=== PATIENT | female | born 1965 | race Caucasian/White ===

== ENCOUNTER → 2017-04-22 | Outpatient (CLI) | payer BC ==
--- NOTE | 2017-04-24 07:02 | MM ---
Reason for exam: screening (asymptomatic). Last mammogram was performed 1 year ago. History: Patient is postmenopausal. Family history of breast cancer in 2 maternal aunts. Benign right breast aspiration of the right breast, June 26, 2012. Mammotome Biopsy Removal of both breasts. Taking estrogen for 2 years beginning at age 47. Physical Findings: A clinical breast exam by your physician is recommended on an annual basis and results should be correlated with mammographic findings. MG Screening Mammo w CAD Bilateral CC and MLO view(s) were taken. Prior study comparison: April 19, 2016, bilateral MG diagnostic mammo w CAD ANGEL. April 13, 2015, bilateral MG diagnostic mammo w CAD ANGEL. May 10, 2014, bilateral US breast BILAT. April 08, 2013, CAD bilateral diagnostic mammogram. The breast tissue is heterogeneously dense. This may lower the sensitivity of mammography. Extensive regional calcifications redemonstrated central and lateral right breast with 4 biopsy clips. No significant changes when compared with prior studies. ASSESSMENT: Benign, BI-RAD 2 RECOMMENDATION: Routine screening mammogram of both breasts in 1 year.
== END | disposition home or self-care (01) ==
LOC: RADMAMWWP 12:56
PROVIDERS: ATTEND Surgery
DX: Z12.31 Encounter for screening mammogram for malignant neoplasm of breast (principal)

== ENCOUNTER → 2018-05-02 | Outpatient (CLI) | payer BC ==
--- NOTE | 2018-05-05 12:23 | MM ---
Reason for exam: screening (asymptomatic). Last mammogram was performed 1 year ago. History: Patient is postmenopausal. Family history of breast cancer in 2 maternal aunts. Benign right breast aspiration of the right breast, June 26, 2012. Mammotome Biopsy Removal of both breasts. Took estrogen for 3 years beginning at age 47. Physical Findings: A clinical breast exam by your physician is recommended on an annual basis and results should be correlated with mammographic findings. MG 3D Screening Mammo W/Cad Bilateral CC and MLO view(s) were taken. Prior study comparison: April 22, 2017, bilateral MG screening mammo w CAD. April 19, 2016, bilateral MG diagnostic mammo w CAD ANGEL. The breast tissue is heterogeneously dense. This may lower the sensitivity of mammography. Finding: There are stable, fine, regional calcifications in the right breast adjacent to prior biopsy sites. Previous mammotome biopsy in the right breast x 4. No significant changes in finding since April 22, 2017 and April 19, 2016. ASSESSMENT: Benign, BI-RAD 2 RECOMMENDATION: Routine screening mammogram of both breasts in 1 year.
== END | disposition home or self-care (01) ==
LOC: RADMAMWWP 10:14
PROVIDERS: ATTEND Surgery
DX: Z12.31 Encounter for screening mammogram for malignant neoplasm of breast (principal)
CPT/HCPCS: 77063; 77067

== ENCOUNTER → 2018-05-16 | Outpatient (CLI) | payer BC ==
[2018-05-16 11:25] VITALS: BP 108/73; PULSE 65; TEMP 98.6; BMI 33.5
--- NOTE | 2018-05-16 11:36 | P.GSHP ---
History of Present Illness H&P Date: 05/16/18 The patient is a 51 year old white female patient without concerns related to her breast. The patient denies any pain masses nipple discharge or skin changes related to her breast. The patient is status post hysterectomy with bilateral oophorectomy approximately 5 years ago. This was done for a mass on her uterus. Patient had a bilateral mammogram performed 05/02/2018 which was felt to be stable and repeat bilateral mammogram in 1 year's time was recommended. Family History: 1. mother: diagnosed of colon cancer at 62 and 2. maternal aunts: 2 with breast cancer, post menopausal Past surgical history: 1. Hysterectomy with bilateral oophorectomy 2. Bilateral open breast biopsies 3. Mammotome bilateral breast Past Medical History: none Social history: smoke: none alcohol: rare drugsL none - Constitutional Comment: hot flashes Constitutional: Denies chills, Denies fever - EENT Eyes: denies bulging eye, denies pain Ears: bilateral: decreased hearing, deny: tinnitus Ears, nose, mouth and throat: Denies headache, Denies sore throat - Breasts Breasts: bilateral: as per HPI - Cardiovascular Cardiovascular: Denies chest pain, Denies shortness of breath - Respiratory Respiratory: Denies cough, Denies 7 - Gastrointestinal Gastrointestinal: Denies abdominal pain, Denies diarrhea, Denies nausea, Denies vomiting - Genitourinary (Female) Genitourinary: Denies dysuria, Denies hematuria - Menstruation Menstruation: Reports post hysterectomy - Musculoskeletal Musculoskeletal: Denies myalgias - Integumentary Integumentary: Denies pruritus, Denies rash - Neurological Neurological: Denies numbness, Denies weakness - Psychiatric Psychiatric: Denies anxiety, Denies depression - Endocrine Endocrine: Denies fatigue, Denies weight change - Hematologic/Lymphatic Comment: none - Allergic/Immunologic Allergic/Immunologic: Reports seasonal allergies Surgical - Exam - General well developed, well nourished, no distress - Eyes normal ocular movement, no icteric - ENT no hearing loss, no congestion - Neck no masses, trachea midline - Respiratory normal respiratory effort, clear to auscultation - Cardiovascular Rhythm: regular Heart Sounds: normal: S1, S2 - Abdomen Abdomen: soft, non tender, no guarding, no rigid, no rebound - Neurologic no disoriented, no combative - Musculoskeletal normal gait, normal posture - Psychiatric oriented to time, oriented to person, oriented to place, speech is normal, memory intact Breast examination: Right breast: Multi-positional exam no dominant masses or nodules of concern Right axilla: No adenopathy of concern Left breast: Well-healed scar from prior biopsy multiple positional exam no dominant masses or nodules of concern Left axilla: No adenopathy of concern Results Mammograms 05-02-2018 report reviewed Assessment and Plan Assessment: Impression: 1. Fibrocystic breast changes 2. Decreased hearing Plan: 1. Repeat bilateral mammogram and physician exam in 1 year CC: Amirah Roy
== END ==
LOC: WWCWWP 10:51
PROVIDERS: ATTEND Surgery
DX: Z53.9 Procedure and treatment not carried out, unspecified reason (principal)

== ENCOUNTER → 2019-05-13 | Outpatient (CLI) | payer BC ==
--- NOTE | 2019-05-14 12:50 | MM ---
Reason for exam: screening (asymptomatic). Last mammogram was performed 1 year ago. History: Patient is postmenopausal. Family history of breast cancer in 2 maternal aunts. Benign right breast aspiration of the right breast, June 26, 2012. Mammotome Biopsy Removal of both breasts. Took estrogen for 3 years beginning at age 47. Physical Findings: A clinical breast exam by your physician is recommended on an annual basis and results should be correlated with mammographic findings. MG 3D Screening Mammo W/Cad Bilateral CC and MLO view(s) were taken. Prior study comparison: May 02, 2018, bilateral MG 3d screening mammo w/cad. April 22, 2017, bilateral MG screening mammo w CAD. The breast tissue is heterogeneously dense. This may lower the sensitivity of mammography. Left superior asymmetry, additional views recommended. Right biopsy markers noted with marked surrounding distortion. Ultrasound recommended as a precautionary measure. ASSESSMENT: Incomplete: need additional imaging evaluation, BI-RAD 0 RECOMMENDATION: Special view mammogram of the left breast. Ultrasound of the right breast. (upper outer quadrant) [facility] will attempt to contact patient to return for supplemental views and ultrasound.
== END | disposition home or self-care (01) ==
LOC: RADMAMWWP 09:23
PROVIDERS: ATTEND Surgery
DX: Z12.31 Encounter for screening mammogram for malignant neoplasm of breast (principal)
CPT/HCPCS: 77063; 77067

== ENCOUNTER → 2019-05-21 | Outpatient (CLI) | payer BC | END | disposition home or self-care (01) | LOC: RADMAMWWP 13:05 | PROVIDERS: ATTEND Surgery | DX: Z53.9 Procedure and treatment not carried out, unspecified reason (principal) ==

== ENCOUNTER → 2019-05-21 | Outpatient (CLI) | payer BC ==
--- NOTE | 2019-05-21 10:51 | MM ---
Reason for exam: additional evaluation requested from abnormal screening. Last mammogram was performed less than 1 month ago. History: Patient is postmenopausal. Family history of breast cancer in 2 maternal aunts. Benign right breast aspiration of the right breast, June 26, 2012. Mammotome Biopsy Removal of both breasts. Took estrogen for 3 years beginning at age 47. Physical Findings: Nurse did not find any significant physical abnormalities on exam. MG 3D Work Up W/Cad LT LM and spot compression MLO view(s) were taken of the left breast. Prior study comparison: May 13, 2019, bilateral MG 3d screening mammo w/cad. May 02, 2018, bilateral MG 3d screening mammo w/cad. The breast tissue is heterogeneously dense. This may lower the sensitivity of mammography. Asymmetric breast tissue left upper breast, stable. No definite lesion. These results were verbally communicated with the patient and result sheet given to the patient on 05/21/19. ASSESSMENT: Benign, BI-RAD 2 RECOMMENDATION: Return to routine screening mammogram schedule for both breasts.
--- NOTE | 2019-05-21 10:53 | USB ---
Reason for exam: additional evaluation requested from abnormal screening. History: Patient is postmenopausal. Family history of breast cancer in 2 maternal aunts. Benign right breast aspiration of the right breast, June 26, 2012. Mammotome Biopsy Removal of both breasts. Took estrogen for 3 years beginning at age 47. US Breast Workup Limited RT Right limited breast ultrasound including focal area of concern, retroareolar and axilla demonstrates a 0.3 x 0.3 x 0.2cm oval, cystic lesion at 12 o'clock focal dense fibroglandular tissue and a 0.9 x 0.6 x 0.7cm oval, mixed lesion at 10 o'clock, questionable debris filled cyst. These results were verbally communicated with the patient and result sheet given to the patient on 05/21/19. ASSESSMENT: Probably benign, BI-RAD 3 RECOMMENDATION: Follow-up diagnostic mammogram and ultrasound of the right breast in 6 months.
[2019-05-21 14:32] VITALS: BP 122/77; PULSE 69; RESP 18; TEMP 98.6; BMI 34.7
--- NOTE | 2019-05-21 14:39 | P.GSHP ---
History of Present Illness H&P Date: 05/21/19 The patient is a 53 year old white female patient without concerns related to her breast. The patient denies any pain masses nipple discharge or skin changes related to her breast. The patient is status post hysterectomy with bilateral oophorectomy approximately 5 years ago. This was done for a mass on her uterus. Patient had a bilateral mammogram performed 05-13-19, it was recommended she undergo a left breast mammogram and right breast ultrasound. On the right ultrasound patient was noted to have cystic changes in the right breast for which repeat right breast mammogram and ultrasound was recommended and 6 months. On the left breast mammogram no definite lesions of concern were noted and repeat mammogram in 1 year was recommended. Family History: 1. mother: diagnosed of colon cancer at 62 and 2. maternal aunts: 2 with breast cancer, post menopausal Past surgical history: 1. Hysterectomy with bilateral oophorectomy 2. Bilateral open breast biopsies 3. Mammotome bilateral breast Past Medical History: anxiety/depression Social history: smoke: none alcohol: rare drugs: none - Constitutional Comment: hot flashes resolvedsince taking Celexa Constitutional: Denies chills, Denies fever - EENT Eyes: denies bulging eye, denies pain Ears: bilateral: decreased hearing, deny: tinnitus Ears, nose, mouth and throat: Denies headache, Denies sore throat - Breasts Breasts: bilateral: as per HPI - Cardiovascular Cardiovascular: Denies chest pain, Denies shortness of breath - Respiratory Respiratory: Denies cough, Denies SOB - Gastrointestinal Gastrointestinal: Denies abdominal pain, Denies diarrhea, Denies nausea, Denies vomiting - Genitourinary (Female) Genitourinary: Denies dysuria, Denies hematuria - Menstruation Menstruation: Reports post hysterectomy - Musculoskeletal Musculoskeletal: Denies myalgias - Integumentary Integumentary: Denies pruritus, Denies rash - Neurological Neurological: Denies numbness, Denies weakness - Psychiatric Psychiatric: anxiety/depression - Endocrine Endocrine: Denies fatigue, Denies weight change - Hematologic/Lymphatic Comment: none - Allergic/Immunologic Allergic/Immunologic: Reports seasonal allergies - Constitutional Constitutional: Denies chills, Denies fever - EENT Eyes: denies blurred vision, denies pain Ears: bilateral: decreased hearing, deny: tinnitus Ears, nose, mouth and throat: Denies headache, Denies sore throat - Breasts Breasts: bilateral: as per HPI - Cardiovascular Cardiovascular: Denies chest pain, Denies shortness of breath - Respiratory Respiratory: Denies cough, Denies 7 - Gastrointestinal Gastrointestinal: Denies abdominal pain, Denies diarrhea, Denies nausea, Denies vomiting - Genitourinary (Female) Genitourinary: Denies dysuria, Denies hematuria - Menstruation Comment: took ovaries Menstruation: Reports post hysterectomy - Musculoskeletal Comment: arthritis - Integumentary Integumentary: Denies pruritus, Denies rash - Neurological Neurological: Denies numbness, Denies weakness - Psychiatric Psychiatric: Reports anxiety, Reports depression - Endocrine Endocrine: Denies fatigue, Denies weight change - Hematologic/Lymphatic Comment: none - Allergic/Immunologic Allergic/Immunologic: Reports seasonal allergies Past Medical History History of Any Multi-Drug Resistant Organisms: None Reported Smoking Status: Never smoker Medications and Allergies Home Medications Medication Instructions Recorded Confirmed Type Fexofenadine HCl [Roula Allergy] 60 mg PO DAILY 05/16/18 05/16/18 History Fluticasone Nasal Gheens [Flonase 1 spray EA NOSTRIL DAILY 05/16/18 05/16/18 History Nasal Gheens] Allergies Allergy/AdvReac Type Severity Reaction Status Date / Time No Known Allergies Allergy Unverified 05/16/18 11:20 Surgical - Exam BMI - General BMI 34.7 obese - Eyes normal ocular movement - ENT no hearing loss, no congestion - Neck no masses, trachea midline - Respiratory normal respiratory effort, clear to auscultation - Cardiovascular Rhythm: regular Heart Sounds: normal: S1, S2 - Abdomen Abdomen: soft, non tender, no guarding, no rigid, no rebound - Integumentary normal turgor - Neurologic no disoriented, no combative - Musculoskeletal normal gait, normal posture - Psychiatric oriented to time, oriented to person, oriented to place, speech is normal, memory intact breast exam: Right breast: Multi-positional exam fibrocystic changes, increased nodularity at 12 o'clock position no discrete mass Right axilla: No adenopathy of concern Left breast: Multi-positional exam fibrocystic changes, increased fullness upper-outer quadrant region which is questionably consistent with a cyst Left axilla: No adenopathy of concern Results Mammogram and ultrasound results reviewed Assessment and Plan Assessment: Impression: 1. Fibrocystic breast changes 2. Asymmetry of right breast larger than the left breast 3. Fullness left breast upper outer quadrant attempted aspiration versus FNA 4. Fullness 12 o'clock position right breast we'll reevaluate when patient comes for cyst aspiration of the left breast 5. Maternal aunts with breast cancer 6. Patient is perimenopausal as per night sweats she has had a hysterectomy is not taking hormones 7. Anxiety/depression Plan: 1. Repeat right breast mammogram and ultrasound in 6 months 2. We will attempt to do aspiration of questionable cystic lesion in the left breast upper quadrant depending on ability to do this would consider aspiration of 12 o'clock position right breast 3. Medical management of medical conditions CC: Sri Roy
== END ==
LOC: WWCWWP 08:55
PROVIDERS: ATTEND Surgery
DX: R92.8 Other abnormal and inconclusive findings on diagnostic imaging of breast (principal)
CPT/HCPCS: 77061; 77065

== ENCOUNTER → 2019-06-12 | Outpatient (CLI) | payer BC ==
--- NOTE | 2019-06-12 08:21 | P.PCN ---
Date of Procedure: 06/12/19 Preoperative Diagnosis: Fullness left breast upper outer quadrant area Postoperative Diagnosis: Fibrocystic breast changes Procedure(s) Performed: Attempted aspiration upper outer quadrant area fine-needle aspiration cytology obtained Surgeon: Carey Osman Pathology: other (Fine-needle aspiration cytology) Condition: stable Disposition: same day Indications for Procedure: fullness upper outer quadrant left breast Operative Findings: fibrocystic changes Description of Procedure: Palpation of the upper outer quadrant area of the left breast revealed some fullness which was consistent with questionably cystic changes. An attempt at a cyst aspiration was performed however no cystic fluid was obtained. Fine-needle aspiration of the area was obtained. The breast was prepped using alcohol. A 22-gauge needle on a 10 mL syringe was inserted into the area of concern. Suction was applied to the syringe and the syringe was passed several times into the area. Tissue was obtained. The tissue was prepared for pathology and sent to pathology. The right breast was also reevaluated the area of change at the 12 o'clock position was consistent with that which had been felt in the left breast upper outer quadrant area and was felt to be most likely teleservices representative of fibrocystic change as well. Therefore no FNA was performed on the right side. This will continue to be monitored closely. Impression: 1. Fibrocystic breast changes 2. Asymmetry of the right breast larger than the left breast 3. Tortuous left breast upper outer quadrant attempted aspiration performed no cystic fluid obtained FNA up obtained 4. Simvastatin correct position of right breast consistent with fibrocystic changes 5. Maternal aunts with breast cancer 6. Patient perimenopausal 7. Anxiety/depression Plan: 1. Repeat right breast mammogram and ultrasound in 6 months 2. Repeat physician exam in 6 months 3. Patient can call for results of FNA if there is any atypia recommended open biopsy 4. Medical management of medical conditions Cc: Sri Laughlin
[2019-06-12 08:41] VITALS: BP 115/76; PULSE 67; RESP 18; TEMP 98; BMI 34.2
--- NOTE | 2019-06-19 16:08 | P.PN ---
Progress Note - Text Progress Note Date: 06/19/19 The patient called for results of her right breast UOQ FNA which was performed on . Pathology was benign with minimally cellular specimen consisting of predominantly blood and fragments of adipose tissue, nondiagnostic. There was no atypia present in the specimen. We're therefore going to follow the patient conservatively. The fullness which had been felt in the right breast at 12 Oclock is believed to be fibrocystic disease. The plan therefore is for repeat right breast mammogram and ultrasound in 6 months from her last right breast mammogram, and ultrasound. This will be done in November 2019. Repeat physician exam at that time as well. This was discussed with the patient. The patient states she has some ecchymosis at the site of the FNA but this is resolving. She has no other complaints related to the procedure. She will follow up in 6 months or sooner if she has any questions or concerns. Dr. Agosto
== END | disposition home or self-care (01) ==
LOC: WWCWWP 07:58
PROVIDERS: ATTEND Surgery
DX: N64.9 Disorder of breast, unspecified (principal)
CPT/HCPCS: 88173

== ENCOUNTER → 2019-12-25 | Outpatient (CLI) | payer BC ==
--- NOTE | 2019-12-25 10:43 | MM ---
Reason for exam: follow-up at short interval from prior study. Last mammogram was performed 7 months ago. History: Patient is postmenopausal. Family history of breast cancer in 2 maternal aunts. Benign right breast aspiration of the right breast, June 26, 2012. Mammotome Biopsy Removal of both breasts. Took estrogen for 3 years beginning at age 47. Physical Findings: Nurse did not find any significant physical abnormalities on exam. MG 3D Diag Mammo W/Cad RT CC and MLO view(s) were taken of the right breast. Prior study comparison: May 21, 2019, left breast MG 3d work up w/cad LT. May 13, 2019, bilateral MG 3d screening mammo w/cad. The breast tissue is heterogeneously dense. This may lower the sensitivity of mammography. Right upper outer quadrant 8.3cm architectural distortion with three biopsy markers is deep to the scar from prior excisional biopsy. These results were verbally communicated with the patient and result sheet given to the patient on 12/25/19. ASSESSMENT: Incomplete: need additional imaging evaluation, BI-RAD 0 RECOMMENDATION: Ultrasound of the right breast. (follow up from prior)
--- NOTE | 2019-12-25 10:46 | USB ---
Reason for exam: additional evaluation requested from abnormal screening. History: Patient is postmenopausal. Family history of breast cancer in 2 maternal aunts. Benign right breast aspiration of the right breast, June 26, 2012. Mammotome Biopsy Removal of both breasts. Took estrogen for 3 years beginning at age 47. US Breast Limited RT Right limited breast ultrasound including focal area of concern, retroareolar and axilla demonstrates a 0.4 x 0.3 x 0.3cm oval, complex, cystic lesion at 12 o'clock (0.3 x 0.2 x 0.3cm), a 0.5 x 0.7 x 0.2cm oval, cystic lesion at 9 o'clock new but cystic and a 0.8 x 0.7 x 0.6cm oval, cystic lesion at 10 o'clock, increased cystic component (0.9 s 0.7 x 0.6cm). These results were verbally communicated with the patient and result sheet given to the patient on 12/25/19. ASSESSMENT: Benign, BI-RAD 2 RECOMMENDATION: Return to routine screening mammogram schedule for both breasts.
== END | disposition home or self-care (01) ==
LOC: RADMAMWWP 07:38
PROVIDERS: ATTEND Surgery
DX: R92.8 Other abnormal and inconclusive findings on diagnostic imaging of breast (principal)
CPT/HCPCS: 77061; 77065

== ENCOUNTER → 2020-05-16 | Outpatient (CLI) | payer BC ==
--- NOTE | 2020-05-17 09:04 | MM ---
Reason for exam: screening (asymptomatic). Last mammogram was performed 5 months ago. History: Patient is postmenopausal. Family history of breast cancer in 2 maternal aunts. Benign right breast aspiration of the right breast, June 26, 2012. Mammotome Biopsy Removal of both breasts. Took estrogen for 3 years beginning at age 47. Physical Findings: A clinical breast exam by your physician is recommended on an annual basis and results should be correlated with mammographic findings. MG 3D Screening Mammo W/Cad Bilateral CC and MLO view(s) were taken. Prior study comparison: December 25, 2019, right breast MG 3d diag mammo w/cad RT. May 21, 2019, left breast MG 3d work up w/cad LT. The breast tissue is heterogeneously dense. This may lower the sensitivity of mammography. Stable calcifications bilaterally. Previous mammotome biopsy in the right breast. There is chronic nodularity bilaterally. There is no dominant lesion. No significant changes when compared with prior studies. ASSESSMENT: Benign, BI-RAD 2 RECOMMENDATION: Routine screening mammogram of both breasts in 1 year.
== END | disposition home or self-care (01) ==
LOC: RADMAMWWP 07:31
PROVIDERS: ATTEND Surgery
DX: Z12.31 Encounter for screening mammogram for malignant neoplasm of breast (principal)
CPT/HCPCS: 77063; 77067

== ENCOUNTER → 2020-06-30 | Outpatient (CLI) | payer BC ==
[2020-06-30 16:32] VITALS: BP 144/88; PULSE 74; RESP 18; TEMP 98.4
--- NOTE | 2020-06-30 16:35 | P.PN ---
Subjective Progress Note Date: 06/30/20 Principal diagnosis: Fibrocystic breast changes The patient is a 54 year old white female patient without concerns related to her breast. The patient denies any pain, masses nipple discharge or skin changes related to her breast. The patient is status post hysterectomy with bi lateral oophorectomy approximately 5 years ago. This was done for a mass on her uterus. Patient had a bilateral mammogram performed 05-16-20, it was read as benign BIRAD 2. Family History: 1. mother: diagnosed of colon cancer at 62 and 2. maternal aunts: 2 with breast cancer, post menopausal 3. brother: bile duct cancer Past surgical history: 1. Hysterectomy with bilateral oophorectomy 2. Bilateral open breast biopsies 3. Mammotome bilateral breast Past Medical History: anxiety/depression Social history: smoke: none alcohol: rare drugs: none - Constitutional Comment: hot flashes resolved since taking Celexa Constitutional: Denies chills, Denies fever - EENT Eyes: denies bulging eye, denies pain Ears: bilateral: decreased hearing, deny: tinnitus Ears, nose, mouth and throat: Denies headache, Denies sore throat - Breasts Breasts: bilateral: as per HPI - Cardiovascular Cardiovascular: Denies chest pain, Denies shortness of breath - Respiratory Respiratory: Denies cough, Denies SOB - Gastrointestinal Gastrointestinal: Denies abdominal pain, Denies diarrhea, Denies nausea, Denies vomiting - Genitourinary (Female) Genitourinary: Denies dysuria, Denies hematuria - Menstruation Menstruation: Reports post hysterectomy - Musculoskeletal Musculoskeletal: Denies myalgias - Integumentary Integumentary: Denies pruritus, Denies rash - Neurological Neurological: Denies numbness, Denies weakness - Psychiatric Psychiatric: anxiety/depression - Endocrine Endocrine: Denies fatigue, Denies weight change - Hematologic/Lymphatic Comment: none - Allergic/Immunologic Allergic/Immunologic: Reports seasonal allergies - Constitutional Constitutional: Denies chills, Denies fever Objective - Exam BMI 34.9 - Constitutional General appearance: Present: obese - EENT Eyes: Present: EOMI ENT: Present: hearing grossly normal - Neck Neck: Present: normal ROM - Respiratory Respiratory: bilateral: CTA - Cardiovascular Rhythm: regular Heart sounds: normal: S1, S2 - Gastrointestinal General gastrointestinal: Present: normal bowel sounds, soft - Integumentary Integumentary: Present: normal turgor - Musculoskeletal Musculoskeletal: Present: gait normal - Psychiatric Psychiatric: Present: A&O x's 3, appropriate affect, intact judgment & insight - Additional findings Additional findings: breast exam: Bra: 38DD Inspection: Right breast larger than left breast, bilateral grade 3 ptosis Palpation: Right breast: Multi-positional exam no dominant masses or nodules of concern, fibrocystic changes Right axilla: No adenopathy of concern Left breast: Multi-positional exam no dominant masses or nodules of concern Left axilla: No adenopathy of concern Assessment and Plan Assessment: Impression: 1. Fibrocystic breast changes 2. Asymmetry of the breast Plan: 1. Bilateral mammogram in June 03 with physician exam at that time 2. We have talked about a procedure for the asymmetry of the breast. At this time the patient wishes to wait CC: DR. Agosto encounter 15 minutes, > 50% of time in planning and counselling
== END | disposition home or self-care (01) ==
LOC: WWCWWP 15:43
PROVIDERS: ATTEND Surgery
DX: Z53.9 Procedure and treatment not carried out, unspecified reason (principal)

== ENCOUNTER 2020-10-12 09:32 | Day surgery (SDC) | payer BC ==
[2020-10-06 11:22] VITALS: BMI 34.4
[~2020-10-12 09:32] MED LIST: LACTATED RINGERS 1,000 ML IV SCH
[2020-10-12 10:02] VITALS: TEMP 98.9
[2020-10-12] MEDS ORDERED: LIDOCAINE 1% (10MG/ML) FOR IV START INTRADERMA ONE (10:04)
[2020-10-12] MEDS ORDERED: MIDAZOLAM 2 MG/2 ML VIAL ONE (10:22)
[2020-10-12] MEDS ORDERED: fentaNYL (PF) 50 MCG/ML 2 ML AMP ONE (10:22)
[2020-10-12] MEDS ORDERED: PROPOFOL 10 MG/ML 20 ML VIAL IV ONE (10:22)
--- NOTE | 2020-10-12 10:50 | P.PCN ---
Date of Procedure: 10/12/20 Procedure(s) Performed: BRIEF HISTORY: Patient is a 54-year-old pleasant white female scheduled for an elective colonoscopy as a part of screening for colorectal neoplasia and family history of colon cancer diagnosed in her mother at age 60. PROCEDURE PERFORMED: Colonoscopy. PREOPERATIVE DIAGNOSIS: Screening for colon cancer/family history of colon cancer. IV sedation per Anesthesia. PROCEDURE: After informed consent was obtained, the patient, was brought into the endoscopy unit. IV sedation was administered by Anesthesia under continuous monitoring. Digital rectal examination was normal. Initially the Olympus CF-160 flexible video colonoscope was then inserted in the rectum, gradually advanced into the cecum without any difficulty. Careful examination was performed as the scope was gradually being withdrawn. Ileocecal valve and the appendiceal orifice were visualized and appeared normal. Prep was excellent. Mucosa of the cecum, ascending colon, transverse colon, descending colon, sigmoid colon, and rectum appeared normal. Retroflexion was performed in the rectum and no lesions were seen. The patient tolerated the procedure well. IMPRESSION: Normal-appearing colon from rectum to cecum with no evidence of colorectal neoplasia. RECOMMENDATIONS: Findings of this examination were discussed with the patient as well as her family. She was advised to have a repeat screening colonoscopy in 5 years because of the family history of colon cancer..
[2020-10-12 11:06] VITALS: BP 117/75; PULSE 65; RESP 20
== END 2020-10-12 11:43 | disposition home or self-care (01) ==
LOC: ORWHC2ENDO 09:32
PROVIDERS: ATTEND Internal Medicine Gastroenterology
DX: Z12.11 Encounter for screening for malignant neoplasm of colon (principal); F41.9 Anxiety disorder, unspecified; F32.9 Major depressive disorder, single episode, unspecified; Z80.0 Family history of malignant neoplasm of digestive organs; Z90.710 Acquired absence of both cervix and uterus; Z90.722 Acquired absence of ovaries, bilateral; Z98.890 Other specified postprocedural states; Z79.899 Other long term (current) drug therapy
CPT/HCPCS: J2250; J3010; J2704; G0105

== ENCOUNTER → 2021-05-18 | Outpatient (CLI) | payer BC ==
--- NOTE | 2021-05-22 14:31 | MM ---
Reason for exam: screening (asymptomatic). Last mammogram was performed 1 year ago. History: Patient is postmenopausal. Family history of breast cancer in 2 maternal aunts. Benign right breast aspiration of the right breast, June 26, 2012. Mammotome Biopsy Removal of both breasts. Took estrogen for 3 years beginning at age 47. Physical Findings: A clinical breast exam by your physician is recommended on an annual basis and results should be correlated with mammographic findings. MG 3D Screening Mammo W/Cad Bilateral CC and MLO view(s) were taken. Prior study comparison: May 16, 2020, bilateral MG 3d screening mammo w/cad. December 25, 2019, right breast MG 3d diag mammo w/cad RT. Finding: There are diffuse/scattered fine calcifications in the right breast. Previous mammotome biopsy in the right breast x 4. No significant changes in finding since May 16, 2020 and December 25, 2019. ASSESSMENT: Benign, BI-RAD 2 RECOMMENDATION: Routine screening mammogram of both breasts in 1 year.
== END | disposition home or self-care (01) ==
LOC: RADMAMWWP 10:21
PROVIDERS: ATTEND Surgery
DX: Z12.31 Encounter for screening mammogram for malignant neoplasm of breast (principal); Z78.0 Asymptomatic menopausal state; Z80.3 Family history of malignant neoplasm of breast; Z79.818 Long term (current) use of other agents affecting estrogen receptors and estrogen levels
CPT/HCPCS: 77063; 77067

== ENCOUNTER → 2021-05-25 | Outpatient (CLI) | payer BC ==
[2021-05-25 10:19] VITALS: BP 135/83; PULSE 61; RESP 18; TEMP 98.1
--- NOTE | 2021-05-25 10:24 | P.PN ---
Subjective Progress Note Date: 05/25/21 Principal diagnosis: fibrocystic breast disease Fibrocystic breast changes The patient is a 55 year old white female patient without concerns related to her breast. The patient denies any pain, masses nipple discharge or skin changes related to her breast. The patient is status post hysterectomy with bilateral oophorectomy approximately 5 years ago. This was done for a mass on her uterus. Patient had a bilateral mammogram performed 05-18-21, it was read as benign BIRAD 2. Family History: 1. mother: diagnosed of colon cancer at 62 and 2. maternal aunts: 2 with breast cancer, post menopausal 3. brother: bile duct cancer Past surgical history: 1. Hysterectomy with bilateral oophorectomy 2. Bilateral open breast biopsies 3. Mammotome bilateral breast Past Medical History: anxiety/depression Social history: smoke: none alcohol: rare drugs: none - Constitutional Comment: hot flashes resolved since taking Celexa Constitutional: Denies chills, Denies fever - EENT Eyes: denies bulging eye, denies pain Ears: bilateral: decreased hearing, deny: tinnitus Ears, nose, mouth and throat: Denies headache, Denies sore throat - Breasts Breasts: bilateral: as per HPI - Cardiovascular Cardiovascular: Denies chest pain, Denies shortness of breath - Respiratory Respiratory: Denies cough, Denies SOB - Gastrointestinal Gastrointestinal: Denies abdominal pain, Denies diarrhea, Denies nausea, Denies vomiting - Genitourinary (Female) Genitourinary: Denies dysuria, Denies hematuria - Menstruation Menstruation: Reports post hysterectomy - Musculoskeletal Musculoskeletal: Denies myalgias - Integumentary Integumentary: Denies pruritus, Denies rash - Neurological Neurological: Denies numbness, Denies weakness - Psychiatric Psychiatric: anxiety/depression - Endocrine Endocrine: Denies fatigue, Denies weight change - Hematologic/Lymphatic Comment: none - Allergic/Immunologic Allergic/Immunologic: Reports seasonal allergies - Constitutional Constitutional: Denies chills, Denies fever Objective - Exam BMI 36.9 - Constitutional General appearance: Present: cooperative - EENT Eyes: Present: EOMI ENT: Present: hearing grossly normal - Neck Neck: Present: normal ROM - Respiratory Respiratory: bilateral: CTA - Cardiovascular Rhythm: regular Heart sounds: normal: S1, S2 - Integumentary Integumentary: Present: normal turgor - Musculoskeletal Musculoskeletal: Present: gait normal - Psychiatric Psychiatric: Present: A&O x's 3, appropriate affect, intact judgment & insight - Additional findings Additional findings: Breast Exam: BRA: sports XL inspection: Right breast larger than the left breast, well-healed scars bilateral from prior biopsies; lateral grade 3 ptosis or cystic changes, no dominant masses or nodules of concern palpation: Right axilla: No adenopathy of concern Left breast: Multiple positional exam fibrocystic changes no dominant masses or nodules of concern Left axilla: No adenopathy of concern Assessment and Plan Assessment: Impression: 1. Fibrocystic breast changes 2. Asymmetry of the breast 3. No dominant masses or nodules of concern in either breast 4. Benign BIRADS 2 bilateral mammogram 8521 Plan: 1. Bilateral mammogram in 1 year with physician exam at that time 2. Patient to call if she notes any concerns sooner CC: Dr. Holden; Marga Gamble
== END ==
LOC: WWCWWP 09:40
PROVIDERS: ATTEND Surgery
DX: N60.12 Diffuse cystic mastopathy of left breast (principal); F41.9 Anxiety disorder, unspecified; F32.9 Major depressive disorder, single episode, unspecified; N64.89 Other specified disorders of breast

== ENCOUNTER → 2022-01-09 | Outpatient (CLI) | payer BC ==
[2022-01-10 00:16] LABS: Basophils # (A) 0.05 X 10*3/uL (0.00-0.10); Basophils % (A) 1.4 %; Eosinophils # (A) 0.32 X 10*3/uL (0.04-0.35); Eosinophils % (A) 9.2 %; HGB 13.2 g/dL (12.0-15.0); Immature Grans, Automated 0.3 %; Lymphocytes % (A) 34.6 %; MCH 31.1 pg (27.0-32.0); MCHC 32.2 g/dL (32.0-37.0); MCV 96.7 fL (80.0-97.0); Mean Platelet Volume 9.8 fL (9.5-12.2); Monocytes # (A) 0.37 X 10*3/uL (0.20-1.00); Monocytes % (A) 10.7 %; NRBC Per 100 WBC 0 /100 WBCS (0.0-0.0); Neutrophils # (A) 1.52 X 10*3/uL (1.80-7.70); Neutrophils % (A) 43.8 %; Platelet Count 294 X 10*3/uL (140-440); RBC 4.24 X 10*6/uL (4.10-5.20); RDW 12.5 % (11.5-14.5); WBC 3.47 X 10*3/uL (4.50-10.00)
[2022-01-10 02:47] LABS: % Iron Saturation 24.05 (12.00-45.00); African American GFR (CKD) 114.8 (60.0-200.0); Albumin 4.9 g/dL (3.8-4.9); Albumin/Globulin Ratio 2.28 (1.60-3.17); BUN/Creat Ratio 23.28 Ratio (12.00-20.00); Blood Urea Nitrogen 14.9 mg/dL (9.0-27.0); Calcium 10.3 mg/dL (8.7-10.3); Carbon Dioxide 25.1 mmol/L (20.0-27.5); Globulin 2.1 g/dL (1.6-3.3); Non-African American GFR(CKD) 99.1 (60.0-200.0); Potassium 4.1 mmol/L (3.5-5.5); Total Bilirubin 0.3 mg/dL (0.30-1.20)
[2022-01-10 04:06] LABS: Hepatitis B Surface Antigen Nonreactive (Nonreactive); Hepatitis C IgG Antibody Nonreactive (Nonreactive)
[2022-01-10 04:33] LABS: Alpha 1 Antitrypsin 83.4 mg/dL (99.0-242.0)
[2022-01-10 13:05] LABS: Protein, Total 7.1 g/dL (6.2-8.2)
== END | disposition home or self-care (01) ==
LOC: LABWHC1 11:11
PROVIDERS: ATTEND Internal Medicine Gastroenterology
DX: R74.01 Elevation of levels of liver transaminase levels (principal)
CPT/HCPCS: 36415; 80053; 82103; 82390; 82728; 83516; 83540; 83550; 84165; 85025; 86038; 86039; 86803; 87340

== ENCOUNTER → 2022-05-21 | Outpatient (CLI) | payer BC ==
--- NOTE | 2022-05-22 08:23 | MM ---
Reason for Exam: Screening (asymptomatic). Last screening mammogram was performed 12 month(s) ago. Patient History: Menarche at age 12. Left ovary removed at age 47. Right ovary removed at age 47. Hysterectomy at age 47. Postmenopausal. Estrogen for 3 years from age 47 until age 50. Bilateral Core Biopsy. 06/26/2012, Benign Cyst Aspiration on the right side. Maternal aunt had breast cancer, age 75. Maternal aunt had breast cancer, age 70. Risk Values: Vandana 5 year model risk: 1.1%. NCI Lifetime model risk: 6.7%. Prior Study Comparison: 12/25/2019 Right Diagnostic Mammogram, [facility]. 05/16/2020 Bilateral Screening Mammogram, [facility]. 05/18/2021 Bilateral Screening Mammogram, [facility]. Tissue Density: The breast tissue is heterogeneously dense. This may lower the sensitivity of mammography. Findings: Analyzed By CAD. There is no suspicious group of microcalcifications or new suspicious mass in either breast. Previously biopsied calcifications upper outer right breast remains stable. Overall Assessment: Benign, BI-RAD 2 Management: Screening Mammogram of both breasts in 1 year. A clinical breast exam by your physician is recommended on an annual basis and results should be correlated with mammographic findings. Electronically signed and approved by: Perez Hernandez M.D. Radiologis
== END | disposition home or self-care (01) ==
LOC: RADMAMWWP 09:55
PROVIDERS: ATTEND Surgery
DX: Z12.31 Encounter for screening mammogram for malignant neoplasm of breast (principal); Z80.3 Family history of malignant neoplasm of breast; Z78.0 Asymptomatic menopausal state
CPT/HCPCS: 77063; 77067

== ENCOUNTER → 2023-05-23 | Outpatient (CLI) | payer BC ==
--- NOTE | 2023-05-25 23:16 | MM ---
Reason for Exam: Screening (asymptomatic). Last screening mammogram was performed 12 month(s) ago. Patient History: Menarche at age 12. Patient has no children. Left ovary removed at age 47. Right ovary removed at age 47. Hysterectomy at age 47. Postmenopausal. Estrogen for 3 years from age 47 until age 50. Bilateral Core Biopsy. 06/26/2012, Benign Cyst Aspiration on the right side. Maternal aunt had breast cancer, age 75. Maternal aunt had breast cancer, age 70. Risk Values: Vandana 5 year model risk: 1.8%. NCI Lifetime model risk: 10.0%. Prior Study Comparison: 04/22/2017 Bilateral Screening Mammogram, [facility]. 05/02/2018 Bilateral Screening Mammogram, [facility]. 05/13/2019 Bilateral Screening Mammogram, [facility]. 05/21/2019 Left Diagnostic Mammogram, [facility]. 12/25/2019 Right Diagnostic Mammogram, [facility]. 05/16/2020 Bilateral Screening Mammogram, [facility]. 05/18/2021 Bilateral Screening Mammogram, [facility]. 05/21/2022 Bilateral MG 3D screening mammo w/cad, [facility]. Tissue Density: The breast tissue is heterogeneously dense. This may lower the sensitivity of mammography. Findings: Analyzed By CAD. Unchanged global asymmetry upper outer quadrant right breast. For microclips in the right breast from prior biopsies. Chronic nodularity on both sides. Additional areas of asymmetric density are unchanged. No significant change from prior exams. Overall Assessment: Benign, BI-RAD 2 Management: Screening Mammogram of both breasts in 1 year. . Patient should continue monthly self-breast exams. A clinical breast exam by your physician is recommended on an annual basis. This exam should not preclude additional follow-up of suspicious palpable abnormalities. Note on Vandana scores and lifetime risk: 1. A Vandana score greater than 3% is considered moderate risk. If this is the case, consider specialist referral to assess eligibility for a risk reducing agent. 2. If overall lifetime risk for the development of breast cancer is 20% or higher, the patient may qualify for future screening with alternating mammogram and breast MRI. Electronically signed and approved by: Cynthia Costello M.D. Radiologist
== END | disposition home or self-care (01) ==
LOC: RADMAMWWP 13:25
PROVIDERS: ATTEND Surgery
DX: Z12.31 Encounter for screening mammogram for malignant neoplasm of breast (principal); Z78.0 Asymptomatic menopausal state; Z80.3 Family history of malignant neoplasm of breast
CPT/HCPCS: 77063; 77067

== ENCOUNTER → 2023-09-28 | Outpatient (CLI) | payer BC ==
[2023-09-28 23:10] LABS: Basophils # (A) 0.04 X 10*3/uL (0.00-0.10); Basophils % (A) 1.1 %; Eosinophils # (A) 0.36 X 10*3/uL (0.04-0.35); Eosinophils % (A) 10.1 %; HCT 40.7 % (37.2-46.3); HGB 13.1 g/dL (12.0-15.0); Immature Grans, Automated 0 %; Lymphocytes # (A) 1.14 X 10*3/uL (0.90-5.00); Lymphocytes % (A) 31.8 %; MCH 31.1 pg (27.0-32.0); MCHC 32.2 g/dL (32.0-37.0); MCV 96.7 FL (80.0-97.0); Mean Platelet Volume 10.1 FL (9.5-12.2); Monocytes # (A) 0.46 X 10*3/uL (0.20-1.00); Monocytes % (A) 12.8 %; NRBC Per 100 WBC 0 X 10*3/uL (0.00-0.01); Neutrophils # (A) 1.58 X 10*3/uL (1.80-7.70); Neutrophils % (A) 44.2 %; Platelet Count 295 X 10*3/uL (140-440); RBC 4.21 X 10*6/uL (4.10-5.20); RDW 12.7 % (11.5-14.5); WBC 3.58 X 10*3/uL (4.50-10.00)
[2023-09-29 12:44] LABS: ALT 41 U/L (8-44); AST 32 U/L (13-35); Albumin 4.6 g/dL (3.8-4.9); Albumin/Globulin Ratio 2.09 Ratio (1.60-3.17); Alkaline Phosphatase 51 U/L (41-126); BUN/Creat Ratio 22.43 Ratio (12.00-20.00); Blood Urea Nitrogen 15.7 mg/dL (9.0-27.0); Calcium 10.4 mg/dL (8.7-10.3); Carbon Dioxide 23.4 mmol/L (21.6-31.8); Chloride 106 mmol/L (96-109); Chol/HDL Ratio 3.94 Ratio; Globulin 2.2 g/dL (1.6-3.3); Glucose 90 mg/dL (70-110); Potassium 4.5 mmol/L (3.5-5.5); Sodium 143 mmol/L (135-145); Total Bilirubin 0.3 mg/dL (0.3-1.2); Total Protein 6.8 g/dL (6.2-8.2); VLDL Calculation 18.48 mg/dL (5.00-40.00)
== END | disposition home or self-care (01) ==
LOC: LABWHC1 11:20
PROVIDERS: ATTEND Internal Medicine Gastroenterology
DX: E78.00 Pure hypercholesterolemia, unspecified (principal); K76.0 Fatty (change of) liver, not elsewhere classified
CPT/HCPCS: 36415; 80053; 80061; 85025

== ENCOUNTER 2024-05-08 09:43 | Day surgery (SDC) | payer BC ==
[2024-05-06 15:07] VITALS: BMI 37.1
[2024-05-08] MEDS: LACTATED RINGERS 1,000 ML BAG IV STA (11:07)
[2024-05-08] MEDS: IV FLUID CONTINUATION 1,000 ML IV ONE (11:08)
[2024-05-08] MEDS: ONDANSETRON 4 MG/2 ML VIAL IVP STA (11:12)
[2024-05-08] MEDS: DEXAMETHASONE SOD PHOSPHATE 4 MG/ML 1 ML VIAL IVP STA (11:19)
[2024-05-08] MEDS: MIDAZOLAM 2 MG/2 ML VIAL IV ONE (11:29)
--- NOTE | 2024-05-08 11:46 | P.ANPRN ---
Procedure Note - Anesthesia - Nerve Block Performed Right Popliteal Single Time Out Performed: Yes Date of Procedure: 05/08/24 Procedure Start Time: : Procedure Stop Time: :34 Location of Patient: PreOp Indication: Acute Post-Operative Pain, Analgesia, Requested by Surgeon Sedation Type: Sedate with meaningful contact maintained Preparation: Sterile Prep Position: Left Lateral Catheter: None Needle Types: Pajunk Needle Gauge: 21 Ultrasound used to visualize needle placement: Yes Ultrasound used to observe medication spread: Yes Injectate: 0.5% Ropivacaine (see comment for volume) (Ropiv 20ml+Decadron 4mg) Blood Aspirated: No Pain Paresthesia on Injection Noted: No Resistance on Injection: Normal Image Stored and Saved: Yes Events: Uneventful and Well Tolerated
--- NOTE | 2024-05-08 11:48 | P.ANPRN ---
Procedure Note - Anesthesia - Nerve Block Performed Right Adductor Canal Single Time Out Performed: Yes Date of Procedure: 05/08/24 Procedure Start Time: 11:35 Procedure Stop Time: 11:40 Location of Patient: PreOp Indication: Acute Post-Operative Pain, Analgesia, Requested by Surgeon Sedation Type: Sedate with meaningful contact maintained Preparation: Sterile Prep Position: Supine Catheter: None Needle Types: Pajunk Needle Gauge: 21 Ultrasound used to visualize needle placement: Yes Ultrasound used to observe medication spread: Yes Injectate: 0.5% Ropivacaine (see comment for volume) (Ropiv 20ml+Decadron 4mg) Blood Aspirated: No Pain Paresthesia on Injection Noted: No Resistance on Injection: Normal Image Stored and Saved: Yes Events: Uneventful and Well Tolerated
[2024-05-08] MEDS ORDERED: ROPIVACAINE 5 MG/ML 30 ML VIAL ONE (12:59)
[2024-05-08] MEDS ORDERED: fentaNYL (PF) 50 MCG/ML 2 ML AMP ONE (12:59)
[2024-05-08] MEDS ORDERED: MIDAZOLAM 2 MG/2 ML VIAL ONE (12:59)
[2024-05-08] MEDS ORDERED: PROPOFOL 10 MG/ML 20 ML VIAL IV ONE (12:59)
[2024-05-08] MEDS ORDERED: SODIUM CHLORIDE 0.9% (PF) 10 ML VIAL ONE (12:59)
[2024-05-08] MEDS ORDERED: LIDOCAINE 1% INJ 10MG/ML (20 ML MDV) ONE (12:59)
[2024-05-08] MEDS ORDERED: DEXAMETHASONE SOD PHOSPHATE 4 MG/ML 1 ML VIAL ONE (12:59)
--- NOTE | 2024-05-08 14:18 | XR ---
Fluoroscopy History: ORIF ANKLE FX ORIF ANKLE FRACTURE FLUORO TIME: 1.03 MIN DAP: .3492 DR PEETRSON
--- NOTE | 2024-05-08 14:19 | P.OP ---
Date of Procedure: 05/08/24 Preoperative Diagnosis: displaced bimalleolar fracture right ankle Postoperative Diagnosis: same Procedure(s) Performed: open reduction with internal fixation right bimalleolar ankle fracture Implants: Miguelangel 5 hole precontoured lateral malleolar plate with associated 3.5 mm locking and nonlocking screws 4.0 mm partially threaded cannulated screw 1 4.0 mm partially threaded cannulated screws 2 for the medial malleolus Anesthesia: GIOR[place]IA Surgeon: Bobby Massey Estimated Blood Loss (ml): 30 Pathology: none sent Condition: stable Disposition: PACU Description of Procedure: Prior to the patient being brought to the operating room, anesthesia administe red a nerve block on the right lower extremity. The patient was brought into the operative room and placed on table in supine position. Timeout was taken to confirm correct patient identifiers, correct laterality of surgery, and correct procedure. Once all staff in the room were in agreement with the timeout, the patient was induced and placed under general anesthesia. A well-padded tourniquet was placed on the right thigh and a wedge underneath the right hip to internally rotate the right leg. The right leg was then prepped and draped in usual manner. The leg was tingling irrigated with an Esmarch bandage and then the tourniquet was inflated to 250 mmHg. Inches directed over the lateral malleolus where a straight linear incision was made along the midline. The incision was deepened to the subcutaneous tissue careful to identify, avoid, and retract any neurovascular structures and cauterize any bleeding vessels. Dissection was carried down to level of the periosteum. A linear periosteal incision was made . The tissues were reflected anteriorly and posteriorly to expose the fracture. The soft tissue and hematoma were evacuated from between the fracture fragments. Bone reduction forceps were utilized to rotate and bring the fracture back into alignment. Once the fracture was aligned was clamped in place. Fluoroscopy confirmed the proper position of the fracture on AP and lateral views. 4.0 mm nonlocking cortical screw was then used as an interfragmentary screw, utilizing lag technique, across the fracture site. There was excellent bone purchase with the screw and the fracture was compressed well. Fluoroscopy confirmed the proper placement of the screw as well as maintained alignment of the fracture. A Reliance precontoured lateral malleolar plate was then positioned and adjusted under fluoroscopy until it was aligned appropriately. The plate was then temporarily fixated. A nonlocking cortical screw was placed in the third hole from the proximal end of the plate. Locking screws were placed in the most proximal 2 holes of the plate. Distal locking screws were then placed into the lateral malleolus. Drilling for the lateral malleolar screws was done under direct fluoroscopic visualization so that the drill bit did not enter the lateral gutter of the ankle joint. The distal screw was a compression screw to contour the plate and the other 2 screws were locking screws. Fluoroscopic imaging showed that the plate was properly aligned and the fracture well reduced. next there was a fracture of the anterior lateral tibia, which was the insertion point of the anterior inferior tibial-fibular ligament. The fracture was reduced and held in place with the wire. Fluoroscopic imaging showed proper placement of the wire. The cannulated screw was inserted over the wire and advanced until it compressed and reduce the fracture. Fluoroscopic imaging confirmed the proper placement of the hardware. Then attention was directed to the medial malleolar fracture. A bone clamp was used to reduce and hold the fracture in place. Fluoroscopy confirmed anatomic alignment of the fragment. Guidewires for 4.0 mm screws were placed at the distal aspect of the medial malleolus and advanced across the fracture and into the tibia. Fluoroscopic imaging confirmed the proper placement of the wires on the AP and lateral views. Drilling was performed over the wires. 4.0 cannulated screws were inserted over the wires and advanced until the heads engaged the bone of the medial malleolus and compressed the fracture. Fluoroscopic imaging showed proper alignment of the fracture fragment as well as proper placement of the screws. The wounds were then thoroughly irrigated with antibiotic saline. Deep closure was done with 2-0 Vicryl. Subcu closure was done with 4-0 Monocryl. Skin closure was done with nora. An Arthrex jumpstart dressing was placed over the incisions and then a bulky dry dressings applied to the right ankle. The tourniquet was released and capillary refill return to all digits on the right foot. Then the patient was placed in a well-padded, well molded posterior mold/sugar tong splint. The ankle was held in neutral dorsiflexion and slight inversion as it dried. Once the splint was dried, anesthesia was reversed and the patient was taken recovery with vital signs stable.
[2024-05-08 14:24] VITALS: TEMP 97
--- NOTE | 2024-05-08 14:27 | FL ---
Fluoroscopy History: ORIF ANKLE FX FL time: 1.03 min DAP: .3492 DR. PETERSON
[2024-05-08] MEDS: LACTATED RINGERS 1,000 ML IV ONE (14:58)
[2024-05-08 15:49] VITALS: BP 145/75; PULSE 78; RESP 20
== END 2024-05-08 16:07 | disposition home or self-care (01) ==
LOC: OR 09:43
PROVIDERS: ATTEND Podiatrist
DX: S82.841A Displaced bimalleolar fracture of right lower leg, initial encounter for closed fracture (principal); F41.9 Anxiety disorder, unspecified; F32.A Depression, unspecified; H91.90 Unspecified hearing loss, unspecified ear; X58.XXXA Exposure to other specified factors, initial encounter; Z91.09 Other allergy status, other than to drugs and biological substances
CPT/HCPCS: 27814; 64447; 64445; 73600; J2250; J1100; J0690; J2405

== ENCOUNTER → 2024-10-05 | Outpatient (CLI) | payer BC ==
--- NOTE | 2024-10-08 08:28 | MM ---
Reason for Exam: Screening (asymptomatic). Last mammogram was performed 1 year(s) and 4 month(s) ago. Patient History: Menarche at age 12. Patient has no children. Left ovary removed at age 47. Right ovary removed at age 47. Hysterectomy at age 47. Postmenopausal. Estrogen for 3 years from age 47 until age 50. Bilateral Core Biopsy. 06/26/2012, Benign Cyst Aspiration on the right side. Maternal aunt had breast cancer, age 75. Maternal aunt had breast cancer, age 70. Risk Values: Vandana 5 year model risk: 1.8%. NCI Lifetime model risk: 9.8%. Prior Study Comparison: 05/18/2021 Bilateral Screening Mammogram, [facility]. 05/21/2022 Bilateral MG 3D screening mammo w/cad, [facility]. 05/23/2023 Bilateral MG 3D screening mammo w/cad, [facility]. Tissue Density: The breasts are heterogeneously dense, which may obscure small masses. Findings: Analyzed By CAD. Unchanged bilateral areas of asymmetric density. Chronic bilateral nodularity. 4 microvascular clips in the right breast from prior biopsies. Area of regional calcifications upper outer quadrant right breast remains unchanged. There is no suspicious group of microcalcifications or new suspicious mass in either breast. Overall Assessment: Benign, BI-RAD 2 Management: Screening Mammogram of both breasts in 1 year. Patient should continue monthly self-breast exams. A clinical breast exam by your physician is recommended on an annual basis. This exam should not preclude additional follow-up of suspicious palpable abnormalities. Note on Vandana scores and lifetime risk: 1. A Vandana score greater than 3% is considered moderate risk. If this is the case, consider specialist referral to assess eligibility for a risk reducing agent. 2. If overall lifetime risk for the development of breast cancer is 20% or higher, the patient may qualify for future screening with alternating mammogram and breast MRI. [facility], , 10/08/2024 8:25 AM. Electronically signed and approved by: Cynthia Costello M.D. Radiologist
== END | disposition home or self-care (01) ==
LOC: RADMAMWWP 10:03
PROVIDERS: ATTEND Surgery
DX: Z12.31 Encounter for screening mammogram for malignant neoplasm of breast (principal); R92.333 Mammographic heterogeneous density, bilateral breasts; Z78.0 Asymptomatic menopausal state; Z80.3 Family history of malignant neoplasm of breast; Z90.722 Acquired absence of ovaries, bilateral
CPT/HCPCS: 77063; 77067

== ENCOUNTER → 2024-10-16 | Outpatient (CLI) | payer BC | LOC: WWCWWP 10:39 | PROVIDERS: ATTEND Surgery | DX: Z53.9 Procedure and treatment not carried out, unspecified reason (principal) ==

== ENCOUNTER 2025-03-26 06:12 | Day surgery (SDC) | payer BC ==
[~2025-03-26 06:12] MED LIST changes: -LACTATED RINGERS 1,000 ML IV SCH; +LIDOCAINE 1% (10MG/ML) FOR IV START INTRADERMA PRN
[2025-03-26] MEDS ORDERED: MIDAZOLAM 2 MG/2 ML VIAL IV PRN (07:00)
[2025-03-26] MEDS ORDERED: fentaNYL (PF) 50 MCG/ML 2 ML AMP IVP PRN (07:00)
[2025-03-26] MEDS: IV FLUID CONTINUATION 1,000 ML IV ONE (07:13)
[2025-03-26] MEDS: LACTATED RINGERS 1,000 ML IV SCH (07:15)
[2025-03-26] MEDS: ONDANSETRON 4 MG/2 ML VIAL IVP ONE (07:19)
[2025-03-26] MEDS: DEXAMETHASONE SOD PHOSPHATE 4 MG/ML 1 ML VIAL IV ONE (07:19)
[2025-03-26] MEDS ORDERED: LIDOCAINE 1% INJ 10MG/ML (20 ML MDV) ONE (07:24)
[2025-03-26] MEDS ORDERED: MIDAZOLAM 2 MG/2 ML VIAL ONE (07:24)
[2025-03-26] MEDS ORDERED: PROPOFOL 10 MG/ML 20 ML VIAL IV ONE (07:24)
[2025-03-26] MEDS ORDERED: fentaNYL (PF) 50 MCG/ML 2 ML AMP ONE (07:24)
[2025-03-26] MEDS: ceFAZolin 2 GM in DEXTROSE 5% IN WATER 50 ML IVPB PRN (07:29)
[2025-03-26] MEDS: BUPIVACAINE (PF) 0.25% 30 ML VIAL SQ ONE (07:44)
[2025-03-26 08:59] VITALS: RESP 16; TEMP 97
[2025-03-26] MEDS: HYDROmorphone 0.5 MG/0.5 ML SYRINGE IVP PRN (09:12)
--- NOTE | 2025-03-26 09:22 | P.OP ---
Date of Procedure: 03/26/25 Preoperative Diagnosis: Hallux valgus right foot Postoperative Diagnosis: Hallux valgus right foot Procedure(s) Performed: Bunionectomy by double osteotomy right foot Implants: Arthrex 4.0 mm beveled screws x 2, Arthrex 3.5 mm beveled screw x 1 Anesthesia: LYNETTE Surgeon: Bobby Massey Estimated Blood Loss (ml): 2 Pathology: none sent Condition: stable Disposition: PACU Description of Procedure: The patient was brought into the op room and placed on the table in supine position. Timeout was taken to confirm correct patient identifiers, correct laterality of surgery, and correct procedure. Once all staff in the room was in agreement the timeout, the patient was induced and placed under general anesthesia. A well-padded tourniquet was placed on the right calf. 25 cc of 0.25% Marcaine was injected as a right ankle block. The right foot was prepped and draped in usual manner. The leg was exsanguinated and the tourniquet inflated to 250 mmHg. Utilizing live fluoroscopy, a metallic marker was used to make landmarks at the first tarsometatarsal joint as well as aligned to delineate the long axis of the first metatarsal. After that was completed a small incision was made at the neck of the first metatarsal. Under live fluoroscopy a sidecutting bur was used to perform a straight transverse osteotomy through the metatarsal neck. Once completed a hemostat was placed in the medullary canal of the first metatarsal and used to shift the capital fragment laterally. The shifting device was then placed in the medullary canal and used to finalize the position of the capital fragment. Once an adequate amount of lateral displacement was achieved, a wire was placed through this shifting device through the first metatarsal and into the second metatarsal head to maintain the position. Live fluoroscopy showed adequate shift as well as adequate alignment on the AP and lateral views. The initial wire was placed at the medial base of the first metatarsal near the tarsometatarsal joint. Under fluoroscopy the wire was advanced until it came into contact with the lateral cortex of the first metatarsal. Fluoroscopy confirmed proper trajectory on AP and lateral views. Then the wire was passed through the lateral cortex and advanced into the lateral part aspect of the capital fragment. Fluoroscopy confirmed the proper placement of the wire on AP and lateral views. The parallel guide was placed over the first wire and then the second wire was placed in the appropriate hole in the guide and was advanced through the first metatarsal and into the metatarsal head. Final fluoroscopic imaging showed proper placement of both wires. Small stab incisions were made through the skin. Drilling of the more proximal screw was done first. The appropriate size screw was placed over the wire and advanced until the proximal threads engaged the medial cortex of the metatarsal head and the bevel was flush with the surface. A similar method was used for the second screw. Fluoroscopic imaging showed proper placement of both screws. Both screws were fully seated in the metatarsal bone. Then attention was directed to the proximal phalanx of the great toe. A small stab incision was made just proximal to the midline of the proximal phalanx. A rotary bur was inserted and used to perform an Tyler osteotomy. The lateral "cortical hinge was left intact. The osteotomy was manually reduced to make sure there was adequate correction. Once that was achieved a guidewire for a 3.5 mm beveled screw was placed at the central medial base of the proximal phalanx was advanced across the osteotomy distally and laterally until it penetrated the lateral cortex. Fluoroscopic imaging showed proper placement the wire. Over drilling was performed and then another 3.5 mm beveled screw was inserted and advanced until the head engaged the cortex of the base of the proximal phalanx and the bevel was flush with the bone. All guidewires were removed at this point. Final fluoroscopic imaging showed full correction of the deformity and proper placement of all hardware. A large bone resection bur was then used to remove the medial eminence on the first metatarsal created by the shift of the capital fragment. Once that was complet ed all incisions were thoroughly irrigated to remove any of the bone fragments. All incisions were closed with 3-0 nylon. Arthrex jumpstart and dry sterile dressing applied to the foot. The tourniquet was released and capillary refill returned to all digits on the foot. Anesthesia was reversed and the patient was taken recovery with vital signs stable.
[2025-03-26 10:56] VITALS: BP 128/67; PULSE 72
== END 2025-03-26 11:17 | disposition home or self-care (01) ==
LOC: OR 06:12
PROVIDERS: ATTEND Podiatrist
DX: M20.11 Hallux valgus (acquired), right foot (principal); F03.90 Unspecified dementia, unspecified severity, without behavioral disturbance, psychotic disturbance, mood disturbance, and anxiety; K76.0 Fatty (change of) liver, not elsewhere classified; Z90.10 Acquired absence of unspecified breast and nipple; Z79.899 Other long term (current) drug therapy
CPT/HCPCS: 28299; J1100; J0690; J2405; J1171; J0665